=== PATIENT | male | born 1995 | race Caucasian/White ===

== ENCOUNTER 2023-05-20 13:55 | Inpatient (IN) | payer SELFPAY ==
[2023-05-20 14:04] VITALS: BP 161/98; PULSE 88; RESP 16; TEMP 36.6; O2SAT 96
[2023-05-20 14:13] VITALS: BMI 50.0
--- NOTE | 2023-05-20 15:10 | PC.ADMIT ---
[id number] [facility] Admission Note: The patient,Gary Lizarraga,27 y/o, was given written information regarding hospital policies, unit procedures and contact persons. Patient's smoking status: . Vital Signs - 8 hr 05/20/23 14:07 Oxygen Delivery Method Room Air PT DIRECT ADMIT FROM [facility], HERE WITH DX: SI, WITH PLAN TO OD. VOLUNTARY WITH AFFIDAVIT. PT HOMELESS, WITH NO SUPPORT SYSTEM. CALM/COOPERATIVE ON ADMIT, ADMITS TO USEING THC.
[2023-05-20 20:31] VITALS: BP 130/90; PULSE 84; RESP 18; TEMP 36.8; O2SAT 98
[2023-05-21 06:00] VITALS: BP 163/79; PULSE 97; RESP 20; TEMP 36.4; O2SAT 97
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
[2023-05-21 14:00] VITALS: BP 143/95; PULSE 74; RESP 16; TEMP 36.9; O2SAT 98
[2023-05-21 20:31] VITALS: BP 155/85; PULSE 78; RESP 17; TEMP 36.6; O2SAT 100
[2023-05-22 06:00] VITALS: BP 152/99; PULSE 97; RESP 16; TEMP 36.6; O2SAT 97
--- NOTE | 2023-05-22 07:31 | W.PM.NPUPNS ---
Subjective NPU Subjective: Patient presented today reporting that he is feeling the medication might be helping. He denied any side effects at this time. We discussed the social work team coming in tomorrow and being able to begin the process of identifying what resources are available for him in the community. Mental Status Exam MSE Comments: This is an morbidly obese white male in hospital scrubs with limited grooming and limited eye contact. No abnormal movements except for psychomotor retardation. Cooperative with exam in mild distress. Speech was slightly decreased rate and volume. Mood described as depressed, affect subdued. Thought process organized. Thought content: Patient denied suicidal or homicidal ideation though endorsed feeling suicidal leading to his admission, there were no delusions reported or noted, he denied any auditory or visual hallucinations. Attention and concentration appear intact and memory appears reliable but none were formally tested. He is alert and oriented x 3. Insight and judgment are limited and impulse control is impaired. Vitals/I&O/Wt Last Vital Signs Temp 97.9 F 05/22/23 06:00 Pulse 97 05/22/23 06:00 Resp 16 05/22/23 06:00 BP 152/99 05/22/23 06:00 Pulse Ox 97 05/22/23 06:00 O2 Del Method Room Air 05/21/23 20:31 Weight last 48 hrs Weight 137.983 kg Weight 140.614 kg Weight 140.614 kg A&P Assessment and plan (1) Major depressive disorder, recurrent: (2) Cannabis use disorder: (3) Anxiety disorder, unspecified: (4) Homelessness: Plan This is a 27-year-old white male with a previous history of mental health and addiction issues who presents with a long history of mental health issues including depression and bipolar disorder diagnosis of though no clear symptoms consistent with bipolar disorder. He has been hospitalized over 10 times due to these issues. He has a history of suicidal attempts and has been on various medications. He smokes cigarettes and uses cannabis more than alcohol. He has a history of drug use but is not currently using. 1. Started Wellbutrin XL 150 mg p.o. every morning. 2. Continue every 15 minute checks for safety. 3. Encourage individual, group and milieu therapy. 4. Encourage sober living treatment after discharge at the highest level of care to which she is willing to commit. 5. Discuss options for residential environment with social work team on Tuesday, patient plans to stay in a [facility] and let go of his car. Involuntary Hold Information 96 Hour Hold: 96 Hour Involuntary Admission: No Attestations NPU Medical Necessity Statement*: Inpatient hospitalization is medically necessary and the clinically appropriate intervention at this time. We will monitor medications and make changes as indicated. Likely length of stay 2-3 days. Coding Level of Care Code Acute Code for Chg Fwd Diagnoses Major depressive disorder, recurrent F33.9 Cannabis use disorder F12.90 Anxiety disorder, unspecified F41.9 Homelessness Z59.00
[2023-05-22] MEDS: buPROPion XL (24 HR) 150 mg Tablet PO (09:54)
[2023-05-22 13:19] VITALS: BP 162/88; PULSE 85; RESP 16; TEMP 36.7; O2SAT 99
[2023-05-22 19:42] VITALS: BP 129/90; PULSE 97; RESP 18; TEMP 37; O2SAT 97
[2023-05-23 06:00] VITALS: BP 129/84; PULSE 87; RESP 18; O2SAT 97
[2023-05-23] MEDS: buPROPion XL (24 HR) 150 mg Tablet PO (08:21)
[2023-05-23 14:00] VITALS: BP 169/84; PULSE 86; RESP 16; TEMP 36.7; O2SAT 96
--- NOTE | 2023-05-23 16:03 | P.NPUPN_ITS ---
Subjective NPU Subjective: 27-year-old male who was admitted with suicidal ideation and depression having reported lack of social supports. He had indicated that he had been abusing methamphetamine for an extended period of time but had been sober for greater than 6 months. He had reported that he continued to feel depressed and was on his way to [place] to find a job when his car broke down in [place] and he had expressed suicidal ideation. He had reported previous trials on antidepressants without any success but stated that he was feeling a little bit better with his Wellbutrin at this time. He reported no feelings of worthlessness. He had reported adequate sleep. He had reported a lack of drive and had reported anhedonia for several months. He had reported cannabis use for several years. He had reported homelessness and stated that he did not have any social supports. Mental Status Exam MSE Comments: This is an morbidly obese white male in hospital scrubs with improved grooming and fleeting eye contact. No abnormal movements except for psychomotor retardation. He was cooperative with exam in mild distress. Speech was slightly decreased in rate and normal in volume. Mood described as depressed. Affect was flat. Thought process was organized. Thought content: Patient denied suicidal or homicidal ideation though endorsed feeling suicidal leading to his admission, there were no delusions reported or noted, he denied any auditory or visual hallucinations. Attention and concentration appear intact and memory appears reliable but none were formally tested. He is alert and oriented x 3. Insight and judgment are limited and impulse control is impaired. Vitals/I&O/Wt Last Vital Signs Temp 98.0 F 05/23/23 14:00 Pulse 86 05/23/23 14:00 Resp 16 05/23/23 14:00 BP 169/84 05/23/23 14:00 Pulse Ox 96 05/23/23 14:00 O2 Del Method Room Air 05/21/23 20:31 Weight last 48 hrs Weight 137.983 kg A&P Assessment and plan (1) Major depressive disorder, recurrent: (2) Cannabis use disorder: (3) Anxiety disorder, unspecified: (4) Homelessness: Plan This is a 27-year-old white male with a previous history of mental health and addiction issues who presents with a long history of mental health issues including depression and bipolar disorder diagnosis of though no clear symptoms consistent with bipolar disorder. He has been hospitalized over 10 times due to these issues. He has a history of suicidal attempts and has been on various medications. He smokes cigarettes and uses cannabis more than alcohol. He has a history of drug use but is not currently using. 1. Continue Wellbutrin XL 150 mg p.o. every morning with likely increase in 2-3 days. 2. Continue every 15 minute checks for safety. 3. Encourage individual, group and milieu therapy. 4. Encourage sober living treatment after discharge at the highest level of care to which she is willing to commit. 5. Patient remains homeless. Involuntary Hold Information 96 Hour Hold: 96 Hour Involuntary Admission: No Attestations NPU Medical Necessity Statement*: Inpatient hospitalization is medically necessary and the clinically appropriate intervention at this time. We will monitor medications and make changes as indicated. His likely length of stay is 2-3 days. Coding Level of Care Code Acute Code for [facility] Fwd Diagnoses Major depressive disorder, recurrent F33.9 Cannabis use disorder F12.90 Anxiety disorder, unspecified F41.9 Homelessness Z59.00
[2023-05-23 20:57] VITALS: BP 161/86; PULSE 89; RESP 18; TEMP 36.3; O2SAT 97
[2023-05-24 06:00] VITALS: BP 164/99; PULSE 89; RESP 17; TEMP 36.4; O2SAT 98
[2023-05-24] MEDS: buPROPion XL (24 HR) 150 mg Tablet PO (08:01)
[2023-05-24] MEDS: nicotine 2 mg Gum BUCCAL ×2 (09:23→12:02)
[2023-05-24 14:00] VITALS: BP 142/84; PULSE 97; RESP 16; TEMP 36.6; O2SAT 94
--- NOTE | 2023-05-24 17:55 | P.NPUPN_ITS ---
Subjective NPU Subjective: 27-year-old male who was admitted with suicidal ideation and depression having reported lack of social supports. He continued to report feeling depressed and stated that he was starting to feel better. He had reported that he was hopeful about remaining in [place] and continue to report the stress of being homeless. He reported that he was working on becoming a resident of [place] and had filed for Medicaid here. He had reported no cravings for opiates. He had been able to attend groups. He reported no side effects from his current medication. Mental Status Exam MSE Comments: This is an morbidly obese white male in hospital scrubs with improved grooming and fleeting eye contact. No abnormal movements except for moderate psychomotor retardation. He was cooperative with exam in mild distress. Speech was slightly decreased in rate and normal in volume. Mood described as depressed. Affect remains restricted. Thought process was organized. Thought content: Patient denied suicidal or homicidal ideation though endorsed feeling suicidal leading to his admission. There were no delusions reported or noted, he denied any auditory or visual hallucinations. Attention and concentration appear intact and memory appears reliable but none were formally tested. He is alert and oriented x 3. Insight and judgment are limited and impulse control is impaired. Vitals/I&O/Wt Last Vital Signs Temp 98 F 05/24/23 14:00 Pulse 97 05/24/23 14:00 Resp 16 05/24/23 14:00 BP 142/84 05/24/23 14:00 Pulse Ox 94 05/24/23 14:00 O2 Del Method Room Air 05/24/23 14:00 A&P Assessment and plan (1) Major depressive disorder, recurrent: (2) Cannabis use disorder: (3) Anxiety disorder, unspecified: (4) Homelessness: Plan This is a 27-year-old white male with a previous history of mental health and addiction issues who presents with a long history of mental health issues including depression and bipolar disorder diagnosis of though no clear symptoms consistent with bipolar disorder. He has been hospitalized over 10 times due to these issues. He has a history of suicidal attempts and has been on various medications. He smokes cigarettes and uses cannabis more than alcohol. He has a history of drug use but is not currently using. 1. Increase Wellbutrin XL 300 mg p.o. in am. 2. Continue every 15 minute checks for safety. 3. Encourage individual, group and milieu therapy. 4. Encourage sober living treatment after discharge at the highest level of care to which she is willing to commit. 5. Patient remains homeless. Working on appropriate custodial. Involuntary Hold Information 96 Hour Hold: 96 Hour Involuntary Admission: No Attestations NPU Medical Necessity Statement*: Inpatient hospitalization is medically necessary and the clinically appropriate intervention at this time. We will monitor medications and make changes as indicated. His likely length of stay is 2-3 days. Coding Level of Care Code Acute Code for [facility] Fwd Diagnoses Major depressive disorder, recurrent F33.9 Cannabis use disorder F12.90 Anxiety disorder, unspecified F41.9 Homelessness Z59.00
[2023-05-24 19:50] VITALS: BP 154/105; PULSE 102; RESP 18; TEMP 36.6; O2SAT 98
[2023-05-24 20:41] VITALS: BP 152/83; PULSE 89
[2023-05-25 06:00] VITALS: BP 119/89; PULSE 99; RESP 17; TEMP 36.6; O2SAT 97
[2023-05-25] MEDS: buPROPion XL (24 HR) 300 mg Tablet PO (08:20)
[2023-05-25] MEDS: nicotine 2 mg Gum BUCCAL (08:20)
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
[2023-05-25 12:20] VITALS: BP 119/89; PULSE 99; RESP 17; TEMP 36.6; O2SAT 97
== END 2023-05-25 13:27 | disposition home or self-care (01) | DRG 885 ==
PROVIDERS: Admitting Provider Psychiatry & Neurology Psychiatry; Visit Provider Psychiatry & Neurology Psychiatry
DX: F33.9 Major depressive disorder, recurrent, unspecified (principal); Z59.00 Homelessness unspecified; R45.851 Suicidal ideations; F41.9 Anxiety disorder, unspecified; Z91.51 Personal history of suicidal behavior; Z62.810 Personal history of physical and sexual abuse in childhood; Z72.0 Tobacco use; F12.90 Cannabis use, unspecified, uncomplicated; Z63.8 Other specified problems related to primary support group
CPT/HCPCS: 97150; 97165